=== PATIENT | male | born 1970 | race Caucasian/White ===

== ENCOUNTER 2019-01-05 16:42 | Inpatient (IN) | payer OTHER ==
[~2019-01-05] VITALS: Ht 185.4 cm; Wt 72.1 kg
--- NOTE | 2019-01-05 17:06 | Emergency Room Report ---
History of Present Illness General Chief Complaint: Abdominal Pain Source: Patient Present Illness HPI Disclaimer: Please note that this report is being documented using [employer] technology. This can lead to erroneous entry secondary to incorrect interpretation by the dictating instrument. HPI: 48-year-old male with no reported medical history presents for evaluation of abdominal pain and vomiting. He was in his usual state of health when he awoke this morning and approximately noon today while at his [employer] soccer game he began to experience periumbilical and epigastric sharp stabbing pain. He says the vomiting and pain were severe almost causing him to double over. He was seen at urgent care and prescribed a GI cocktail which improved his symptoms and he went home however had recurrence of severe periumbilical and epigastric abdominal pain again with vomiting. He denies diarrhea and has been having normal bowel movements. Denies fevers, chills, chest pain, shortness of breath although he does have some difficulty with deep inspiration secondary to abdominal pain. He denies flank pain or dysuria. No history of abdominal surgeries. Does not take any medications. PMH: Denies PSH: Denies Allergies: Denies Social Hx: Denies tobacco, alcohol or drug use Allergies: Coded Allergies: No Known Allergies (Unverified , 01/05/19) Nursing Documentation-PMH Past Medical History: No History, Except For Review of Systems All Other Systems: negative except mentioned in HPI Physical Exam Vital Signs Date Time Temp Pulse Resp B/P (MAP) Pulse Ox O2 Delivery O2 Flow Rate FiO2 01/05/19 16:46 98.2 62 20 137/79 (98) 97 Room Air General: Awake and alert, mildly uncomfortable HEENT: NC/AT. EOMI. moist mucous membranes Cardiovascular: RRR. S1 and S2 normal. No murmur appreciated Resp: Slightly tachypneic. Normal work of breathing. No cough, wheezing or crackles appreciated Abdomen: Abdomen is soft, nondistended. Tender in the epigastrium, left upper quadrant, periumbilical region and in the right lower quadrant. There is positive rebound tenderness. Rovsing sign is negative as are obturator and psoas sign. No flank tenderness. Skin: Intact. No abrasions, laceration or rash over the exposed skin MSK: Normal tone and bulk. Moving all extremities. No obvious deformity. Neuro: Awake and alert. Mentating appropriately. Back/Spine: No CVA tenderness Medical Decision Making Diagnostic Impression: Primary Impression: Pancreatitis ER Course Otherwise healthy 48-year-old male presents for evaluation of abdominal pain and vomiting. Differential includes was not limited to gastritis, gastroenteritis, pancreatitis, appendicitis, cholecystitis, nephrolithiasis, urinary tract infection, pyelonephritis, bowel obstruction, ileus, GERD. At this time is rule out appendicitis or other significant pathology. Will obtain a CT scan of the abdomen with IV contrast, broad labs, provide analgesia, antiemetics and IV fluids. Laboratory Tests Test 01/05/19 16:50 01/05/19 17:00 Urine Color Pale yellow Urine Appearance Slightly cloudy Urine pH 5 (4.5-8.0) Urine Specific [place] 1.020 (1.005-1.035) Urine Protein 1+ (NEGATIVE) H Urine Glucose (UA) Negative (NEGATIVE) Urine Ketones 4+ (NEGATIVE) H Urine Blood Negative (NEGATIVE) Urine Nitrite Negative (NEGATIVE) Urine Bilirubin Negative (NEGATIVE) Urine Urobilinogen Normal MG/DL (0.0-1.0) Urine Leukocyte Esterase Negative (NEGATIVE) Urine RBC 0 /HPF (0 - 0) Urine WBC 2-4 /HPF (0 - 0) Urine Squamous Epithelial Cells Few /LPF (NONE/OCC) Urine Bacteria Few /HPF (NONE) Urine Mucus Moderate /LPF (NONE/OCC) H White Blood Count 12.3 K/UL (4.8-10.8) H Red Blood Count 5.09 M/UL (4.70-6.10) Hemoglobin 15.7 G/DL (14.2-18.0) Hematocrit 45.5 % (42.0-52.0) Mean Corpuscular Volume 90 FL (80-99) Mean Corpuscular Hemoglobin 30.9 PG (27.0-31.0) Mean Corpuscular Hemoglobin Concent 34.6 G/DL (32.0-36.0) Red Cell Distribution Width 10.5 % (11.6-14.8) L Platelet Count 168 K/UL (150-450) Mean Platelet Volume 6.2 FL (6.5-10.1) L Neutrophils (%) (Auto) % (45.0-75.0) Lymphocytes (%) (Auto) % (20.0-45.0) Monocytes (%) (Auto) % (1.0-10.0) Eosinophils (%) (Auto) % (0.0-3.0) Basophils (%) (Auto) % (0.0-2.0) Neutrophils % (Manual) Pending Lymphocytes % (Manual) Pending Platelet Estimate Pending Platelet Morphology Pending Sodium Level 142 MMOL/L (136-145) Potassium Level 4.2 MMOL/L (3.5-5.1) Chloride Level 104 MMOL/L (98-107) Carbon Dioxide Level 26 MMOL/L (21-32) Anion Gap 12 mmol/L (5-15) Blood Urea Nitrogen 14 mg/dL (7-18) Creatinine 0.9 MG/DL (0.55-1.30) Estimate Glomerular Filtration Rate > 60 mL/min (>60) Glucose Level 109 MG/DL (74-106) H Calcium Level 8.9 MG/DL (8.5-10.1) Total Bilirubin 1.6 MG/DL (0.2-1.0) H Direct Bilirubin 0.2 MG/DL (0.0-0.3) Aspartate Amino Transferase (AST) 24 U/L (15-37) Alanine Aminotransferase (ALT) 23 U/L (12-78) Alkaline Phosphatase 61 U/L (46-116) Total Protein 7.2 G/DL (6.4-8.2) Albumin 4.1 G/DL (3.4-5.0) Globulin 3.1 g/dL Albumin/Globulin Ratio 1.3 (1.0-2.7) Lipase 69616 U/L (73-393) H CT/MRI/US Diagnostic Results CT/MRI/US Diagnostic Results : Impression Preliminary Findings Only See Final Report For Complete Findings CT ABDOMEN & PELVIS With Contrast: Impression: Pancreatic and peripancreatic edema suggesting acute pancreatitis. No pancreatic necrosis, loculated fluid collection, pseudoaneurysm, or splenic vein thrombosis. Small amount of free fluid the pelvis. Additional findings: Trace pericardial effusion. Mild periportal edema likely seen IV hydration. Liver, gallbladder, spleen, and adrenal glands are unremarkable. Kidneys, ureters and urinary bladder unremarkable. Appendix is unremarkable. Bowel is unremarkable. No acute osseous abnormality. Radiologist: Miguel Angel Huitron MD Study ready at 19:29 and initial results transmitted at 19:37 Reevaluation Time: 19:38 Last Vital Signs Date Time Temp Pulse Resp B/P (MAP) Pulse Ox O2 Delivery O2 Flow Rate FiO2 01/05/19 16:46 98.2 62 20 137/79 (98) 97 Room Air Status: unchanged Reevaluation Impression Labs are concerning for acute pancreatitis as the patient's lipase is significantly elevated at 12,000. Renal function is otherwise normal. Total bilirubin slightly elevated at 1.6 though LFTs are within normal limits. White count of 12.3 and noninfectious looking urine. CT scan does not show any evidence of pancreatic head necrosis but does show peripancreatic stranding consistent with acute pancreatitis. A right upper quadrant ultrasound has been an abdominal ultrasound is been ordered to evaluate for gallstones as the patient has no other risk factors for acute pancreatitis. Continue IV fluids, antiemetics and pain medication. The patient will be admitted for further management. 2100: No evidence of retained gallstones on ultrasound. GI is aware of the patient and he will be evaluated tomorrow morning. Pain is better controlled and continues to receive IV fluids and antiemetics. Will be transferred to the floor for further management per admitting service Disposition: ADMITTED INPATIENT Condition: Serious Franklyn Parry MD Jan 05, 2019 17:06
[2019-01-05] MEDS ORDERED: Omnipaque-300 100ml vial INJ PRN (17:15)
[2019-01-05 17:35] VITALS: BP 144/76
[2019-01-05 17:36] LABS: APPEARANCE,URINE SLIGHTLY CLOUDY; BILIRUBIN, URINE NEGATIVE (NEGATIVE); COLOR,URINE PALE YELLOW; GLUCOSE, URINE (UA) NEGATIVE (NEGATIVE); KETONES,URINE 4+ (NEGATIVE); LEUKOCYTE ESTERASE ,URINE NEGATIVE (NEGATIVE); NITRITE,URINE NEGATIVE (NEGATIVE); PH,URINE 5 (4.5-8.0); PROTEIN,URINE 1+ (NEGATIVE); UROBILINOGEN,URINE NORMAL MG/DL (0.0-1.0)
[2019-01-05 17:38] LABS: HEMATOCRIT 45.5 % (42.0-52.0); HEMOGLOBIN 15.7 G/DL (14.2-18.0); MEAN CORPUSCULAR VOLUME 90 FL (80-99); PLATELET COUNT 168 K/UL (150-450); RED BLOOD COUNT 5.09 M/UL (4.70-6.10); RED CELL DISTRIBUTION WIDTH 10.5 % (11.6-14.8); WHITE BLOOD COUNT 12.3 K/UL (4.8-10.8)
[2019-01-05 17:53] LABS: ANION GAP 12 mmol/L (5-15); BLOOD UREA NITROGEN 14 mg/dL (7-18); CALCIUM 8.9 MG/DL (8.5-10.1); CARBON DIOXIDE 26 MMOL/L (21-32); CHLORIDE 104 MMOL/L (98-107); CREATININE 0.9 MG/DL (0.55-1.30); POTASSIUM 4.2 MMOL/L (3.5-5.1); SODIUM 142 MMOL/L (136-145)
[2019-01-05 18:04] LABS: ALANINE AMINOTRANSFERASE 23 U/L (12-78); ALBUMIN 4.1 G/DL (3.4-5.0); ALBUMIN/GLOBULIN RATIO 1.3 (1.0-2.7); ALKALINE PHOSPHATASE 61 U/L (46-116); ASPARTATE AMINO TRANSFERASE 24 U/L (15-37); BILIRUBIN,TOTAL 1.6 MG/DL (0.2-1.0)
[2019-01-05 18:08] LABS: BILIRUBIN,DIRECT 0.2 MG/DL (0.0-0.3)
--- NOTE | 2019-01-05 19:38 | Diagnostic Imaging Report ---
Clinical Indication: Abdominal pain, vomiting Technique: No oral contrast utilized, per emergency room physician request IV administration nonionic contrast. Venous phase spiral acquisition obtained through the abdomen and pelvis. Multiplanar reconstructions were generated. Total dose length product 759 mGycm. CTDIvol(s) 13 mGy. Dose reduction achieved using automated exposure control Comparison: none Findings: There is mild enlargement of the pancreatic tail. Fluid is seen tracking along anterior Gerota's fascia into the left paracolic gutter, as well as within the central mesenteric root. Phlegmon changes are also seen in the fat surrounding the pancreatic tail. A small amount of fluid is also seen tracking cephalad under the left hemidiaphragm. The pancreas enhances normally. No discrete or rim-enhancing fluid collection demonstrated. The appendix is normal. There are colonic diverticula. No evidence of acute diverticulitis. No small bowel distention. No free intraperitoneal gas. The liver demonstrates mild periportal edema, is otherwise unremarkable. Gallbladder, bile ducts, spleen, adrenals, kidneys are all unremarkable. No retroperitoneal or mesenteric mass or adenopathy. No pelvic mass or adenopathy. No renal or ureteral calculi, hydronephrosis, or hydroureter. The included lung bases demonstrate posterior dependent atelectatic changes. There are degenerative changes of the lumbosacral junction Impression: Evidence of nonnecrotizing acute pancreatitis, with surrounding phlegmon and fluid. No evidence of pseudocyst or abscess Colonic diverticulosis. No evidence of diverticulitis Mild periportal edema Incidental findings as noted, including degenerative changes of the lumbosacral junction, posterior dependent pulmonary atelectatic changes This agrees with the preliminary interpretation provided overnight by [facility] teleradiology service. The CT scanner at [facility] is accredited by the [employer] and the scans are performed using protocols designed to limit radiation exposure to as low as reasonably achievable to attain images of sufficient resolution adequate for diagnostic evaluation.
[2019-01-05] MEDS ORDERED: Morphine Sulfate 4mg/ml Inj (IV USE ONLY) IVP ONE (20:00)
--- NOTE | 2019-01-05 21:51 | Diagnostic Imaging Report ---
Indication: Epigastric pain, abnormal lipase Technique: [place]-scale and duplex images of the upper abdomen were obtained Comparison: Findings: Gallbladder is unremarkable, without stones, wall thickening, nor pericholecystic fluid. Sonographic Francisco's sign is negative. Common bile duct measures 6 mm in diameter. No intrahepatic biliary ductal dilatation. Liver demonstrates normal echogenicity, no focal abnormality. Portal vein and hepatic veins are patent. There is suggestion of mild pancreatic enlargement in the region of the body and tail Spleen is unremarkable. However, a small amount of fluid is seen adjacent to the spleen Left kidney measures 11.3 cm in length. Right kidney measures 10.1 cm length. Both kidneys demonstrate normal echogenicity. There is no hydronephrosis. No focal abnormality . Non-aneurysmal abdominal aorta . Impression: Negative for gallstones or dilated bile ducts Somewhat enlarged pancreatic body and tail, corresponding with findings demonstrated on earlier CT scan and likely reflecting acute pancreatitis Fluid around the spleen, corresponding to peripancreatic fluid reported on recent CT scan This essentially agrees with the preliminary interpretation provided overnight by [facility] teleradiology service.
[2019-01-05 22:26] VITALS: BP 134/72
[2019-01-06] VITALS: BP 128/74
[2019-01-06] MEDS: D5NS 1,000 ML IV SCH ×4 (00:07→23:18)
[2019-01-06 04:00] VITALS: BP 131/76
[2019-01-06] MEDS: Morphine Sulfate 2mg/ml Inj(IV/IM USE ONLY) IVP PRN ×3 (07:57→20:41)
[2019-01-06 08:00] VITALS: BP 136/76
[2019-01-06 10:30] LABS: BASOPHILS % (AUTO) 0.7 % (0.0-2.0); EOSINOPHILS % (AUTO) 0.1 % (0.0-3.0); HEMATOCRIT 41.3 % (42.0-52.0); HEMOGLOBIN 14.6 G/DL (14.2-18.0); LYMPHOCYTES % (AUTO) 17.8 % (20.0-45.0); MEAN CORPUSCULAR VOLUME 89 FL (80-99); MONOCYTES % (AUTO) 6.9 % (1.0-10.0); NEUTROPHILS % (AUTO) 74.4 % (45.0-75.0); PLATELET COUNT 147 K/UL (150-450); RED BLOOD COUNT 4.67 M/UL (4.70-6.10); RED CELL DISTRIBUTION WIDTH 10.6 % (11.6-14.8); WHITE BLOOD COUNT 9.4 K/UL (4.8-10.8)
[2019-01-06 10:41] LABS: ALANINE AMINOTRANSFERASE 15 U/L (12-78); ALBUMIN 3.1 G/DL (3.4-5.0); ALKALINE PHOSPHATASE 46 U/L (46-116); ANION GAP 5 mmol/L (5-15); ASPARTATE AMINO TRANSFERASE 18 U/L (15-37); BILIRUBIN,DIRECT 0.3 MG/DL (0.0-0.3); BILIRUBIN,TOTAL 1.8 MG/DL (0.2-1.0); BLOOD UREA NITROGEN 10 mg/dL (7-18); CALCIUM 7.7 MG/DL (8.5-10.1); CARBON DIOXIDE 31 MMOL/L (21-32); CHLORIDE 106 MMOL/L (98-107); SODIUM 142 MMOL/L (136-145)
--- NOTE | 2019-01-06 11:00 | General Progress Note ---
Assessment/Plan Assessment/Plan: Assessment Acute pancreatitis, ? Etiology - no EtOH - no stones on imaging - ? panc divisum , ? CBD stone, ? panc lesion Recommendations - NPO today, will consider clears tomorrow - check MRCP tomorrow Thank you Abigail Delacruz MD Subjective Allergies: Coded Allergies: No Known Allergies (Unverified , 01/05/19) Objective Last 24 Hour Vital Signs Date Time Temp Pulse Resp B/P (MAP) Pulse Ox O2 Delivery O2 Flow Rate FiO2 01/06/19 09:00 Room Air 01/06/19 08:00 97.5 68 20 136/76 (96) 98 01/06/19 04:00 99.0 80 18 131/76 (94) 98 01/06/19 00:00 99.2 78 18 128/74 (92) 99 01/05/19 22:26 Room Air 01/05/19 22:26 99.0 74 18 134/72 (92) 98 01/05/19 21:05 98.6 62 18 138/75 98 Room Air 01/05/19 17:35 58 20 Room Air 01/05/19 17:35 98.2 58 17 144/76 98 Room Air 01/05/19 16:46 98.2 62 20 137/79 (98) 97 Room Air Intake and Output 01/05/19 01/06/19 19:00 07:00 Intake Total 1000 ml 750 ml Balance 1000 ml 750 ml Intake IV Total 1000 ml 750 ml # Voids 2 Laboratory Tests 01/05/19 16:50: Urine Color Pale yellow, Urine Appearance Slightly cloudy, Urine pH 5, Urine Specific [place] 1.020, Urine Protein 1+H, Urine Glucose (UA) Negative, Urine Ketones 4+H, Urine Blood Negative, Urine Nitrite Negative, Urine Bilirubin Negative, Urine Urobilinogen Normal, Urine Leukocyte Esterase Negative, Urine RBC 0, Urine WBC 2-4, Urine Squamous Epithelial Cells Few, Urine Bacteria Few, Urine Mucus ModerateH 01/05/19 17:00: White Blood Count 12.3H, Red Blood Count 5.09, Hemoglobin 15.7, Hematocrit 45.5 , Mean Corpuscular Volume 90, Mean Corpuscular Hemoglobin 30.9, Mean Corpuscular Hemoglobin Concent 34.6, Red Cell Distribution Width 10.5L, Platelet Count 168, Mean Platelet Volume 6.2L, Neutrophils (%) (Auto) , Lymphocytes (%) (Auto) , Monocytes (%) (Auto) , Eosinophils (%) (Auto) , Basophils (%) (Auto) , Differential Total Cells Counted 100, Neutrophils % ( Manual) 85H, Lymphocytes % (Manual) 11L, Monocytes % (Manual) 4, Eosinophils % ( Manual) 0, Basophils % (Manual) 0, Band Neutrophils 0, Platelet Estimate Adequate, Platelet Morphology Normal, Red Blood Cell Morphology Normal, Sodium Level 142, Potassium Level 4.2, Chloride Level 104, Carbon Dioxide Level 26, Anion Gap 12, Blood Urea Nitrogen 14, Creatinine 0.9, Estimat Glomerular Filtration Rate > 60, Glucose Level 109H, Calcium Level 8.9, Total Bilirubin 1.6H, Direct Bilirubin 0.2, Aspartate Amino Transf (AST/SGOT) 24, Alanine Aminotransferase (ALT/SGPT) 23, Alkaline Phosphatase 61, Total Protein 7.2, Albumin 4.1, Globulin 3.1, Albumin/Globulin Ratio 1.3, Lipase 42030P 01/06/19 09:50: White Blood Count 9.4, Red Blood Count 4.67L, Hemoglobin 14.6, Hematocrit 41.3L , Mean Corpuscular Volume 89, Mean Corpuscular Hemoglobin 31.4H, Mean Corpuscular Hemoglobin Concent 35.4, Red Cell Distribution Width 10.6L, Platelet Count 147L, Mean Platelet Volume 6.8, Neutrophils (%) (Auto) 74.4, Lymphocytes (%) (Auto) 17.8L, Monocytes (%) (Auto) 6.9, Eosinophils (%) (Auto) 0.1, Basophils (%) (Auto) 0.7, Sodium Level 142, Potassium Level 4.0, Chloride Level 106, Carbon Dioxide Level 31, Anion Gap 5, Blood Urea Nitrogen 10, Creatinine 1.0, Estimat Glomerular Filtration Rate > 60, Glucose Level 127H, Calcium Level 7.7L, Total Bilirubin 1.8H, Direct Bilirubin 0.3, Aspartate Amino Transf (AST/SGOT) 18, Alanine Aminotransferase (ALT/SGPT) 15, Alkaline Phosphatase 46, Total Protein 6.4, Albumin 3.1L Height (Feet): 6 Height (Inches): 1.00 Weight (Pounds): 150 Abigail Delacruz MD Jan 06, 2019 11:00
[2019-01-06] MEDS ORDERED: Gadavist 7.5mMol/7.5ml vial IV SCH (11:15)
[2019-01-06 12:00] VITALS: BP 141/77
--- NOTE | 2019-01-06 12:43 | History & Physical ---
History and Physical History & Physicial dict acute pancreatitis without gallstones IVF pain mgmt NPO Bryson Ramos MD Jan 06, 2019 12:43
--- NOTE | 2019-01-06 15:30 | History and Physical Report ---
DATE OF ADMISSION: 01/05/2019 HISTORY OF PRESENT ILLNESS: The patient is a very pleasant 48-year-old man who was at his child's soccer game when he began having abdominal pain. The pain became more severe and he went to urgent care. He was given a GI cocktail, which alleviated the pain somewhat, and he went home. The pain became much more severe and he came to the emergency department. He was evaluated with labs and imaging and found to have acute pancreatitis and admission was arranged. He does not drink alcohol and has no history of abdominal surgery or gallstones. He is otherwise in good health. PAST MEDICAL HISTORY: Migraine, but no other history of health problems. He specifically denies history of hypertension, diabetes, hyperlipidemia, cardiac or pulmonary disease. He has no history of abdominal disorders such as ulcer, gastritis, or pancreatitis. ALLERGIES: None. MEDICATION: Occasional Imitrex. SOCIAL HISTORY: He is and has children. He does not use alcohol, tobacco, or drugs. REVIEW OF SYSTEMS: Otherwise unremarkable except for some shortness of breath due to pain in the abdomen. PHYSICAL EXAMINATION: GENERAL: The patient is well developed and well nourished. He appears comfortable after receiving some narcotics. VITAL SIGNS: Stable. There is no fever. HEENT: The head is normocephalic. NECK: No jugular venous distention. CHEST: Clear. CARDIAC: Rhythm is regular. ABDOMEN: Tender in the mid and upper abdomen without mass or ascites. Liver and spleen are not felt. EXTREMITIES: No clubbing, cyanosis, or edema. LABORATORY AND DIAGNOSTIC DATA: Laboratory studies and imaging are reviewed. IMPRESSION: 1. Acute pancreatitis, non-necrotizing without gallstones. 2. History of migraine. PLAN: The patient will be kept NPO and given pain medication and fluids. GI consultation has been obtained and recommendations will be followed. I have spoken to his primary physician, Dr. Gómez Grove today. I advised the patient he might be transferred to [facility] if a bed is available. Bryson Ramos M.D. DR: MIRANDA JOB#: [id number] CC: Bryson Ramos M.D.; Fax#: [phone] JUAN GRAY M.D. ; FAX#: [phone] [facility]
[2019-01-06 20:00] VITALS: BP 137/81
[2019-01-06] MEDS: Zolpidem 5mg tab ORAL PRN (23:13)
[2019-01-07] VITALS: BP 139/78
--- NOTE | 2019-01-07 03:30 | Consultation ---
DATE OF CONSULTATION: 01/06/2019 GASTROENTEROLOGY CONSULTATION CONSULTING PHYSICIAN: Abigail Delacruz M.D. REFERRING PHYSICIAN: Bryson Ramos M.D. CHIEF COMPLAINT: I was asked to see this patient by Dr. Bryson Ramos for evaluation of pancreatitis. HISTORY OF PRESENT ILLNESS: The patient is a pleasant 48-year-old white man who was admitted with one-day history of acute abdominal pain in the epigastric region. He had one bout of nausea, vomiting abdominal pain. He does not drink alcohol. He has had no history of gallstones. He is on no new medications or drugs spider bites . PAST MEDICAL HISTORY: History of migraines, treated with Imitrex and history of perhaps a diagnosis of pancreatitis . SOCIAL HISTORY: The patient is . He has three children. HOME MEDICATIONS: Imitrex. REVIEW OF SYSTEMS: Otherwise negative. PHYSICAL EXAMINATION: GENERAL: A white man seen in his room. HEENT: Normocephalic and atraumatic. Sclerae are anicteric. Oropharynx is clear. NECK: Supple. CHEST: Clear to auscultation. CARDIOVASCULAR: Revealed regular rate. ABDOMEN: Soft with epigastric tenderness. No masses. EXTREMITIES: Revealed no edema. LABORATORY DATA: Noted. IMAGING STUDIES: Noted. ASSESSMENT: This patient presents with acute pancreatitis for the first time. He does not drink alcohol. He does not have any stones in the imaging studies here. It is highly possible that he had one stone and the stone passed but causing the pancreatitis. Other pathology to be evaluated. This includes possible pancreatic lesion which was seen on the MRI CT scan. In addition, seen on MRCP. Those were ordered for tomorrow. In addition, I ordered a lipid panel to rule out hypertriglyceridemia as the cause of the pancreatitis. The patient will be kept n.p.o. tomorrow and antibiotics can be started tomorrow after the MRI scanning . RECOMMENDATIONS: Per above discussion and per orders written in the chart. Thank you for asking me to participate in the care of this patient. Payman Khorrami, M.D. DR: LUC JOB#: [id number] CC:
[2019-01-07 04:00] VITALS: BP 122/75
[2019-01-07] MEDS: D5NS 1,000 ML IV SCH ×4 (06:04→21:37)
[2019-01-07 07:16] LABS: BASOPHILS % (AUTO) 0.4 % (0.0-2.0); EOSINOPHILS % (AUTO) 0.1 % (0.0-3.0); HEMATOCRIT 39.9 % (42.0-52.0); HEMOGLOBIN 14.1 G/DL (14.2-18.0); LYMPHOCYTES % (AUTO) 10.7 % (20.0-45.0); MEAN CORPUSCULAR VOLUME 88 FL (80-99); MONOCYTES % (AUTO) 8.2 % (1.0-10.0); NEUTROPHILS % (AUTO) 80.6 % (45.0-75.0); PLATELET COUNT 131 K/UL (150-450); RED BLOOD COUNT 4.52 M/UL (4.70-6.10); RED CELL DISTRIBUTION WIDTH 10.2 % (11.6-14.8); WHITE BLOOD COUNT 12.1 K/UL (4.8-10.8)
[2019-01-07 07:43] LABS: ALANINE AMINOTRANSFERASE 24 U/L (12-78); ALBUMIN/GLOBULIN RATIO 0.9 (1.0-2.7); ALKALINE PHOSPHATASE 51 U/L (46-116); ANION GAP 8 mmol/L (5-15); ASPARTATE AMINO TRANSFERASE 24 U/L (15-37); BILIRUBIN,TOTAL 1.9 MG/DL (0.2-1.0); BLOOD UREA NITROGEN 7 mg/dL (7-18); CALCIUM 7.6 MG/DL (8.5-10.1); CARBON DIOXIDE 27 MMOL/L (21-32); CHLORIDE 106 MMOL/L (98-107); CREATININE 0.9 MG/DL (0.55-1.30); POTASSIUM 3.8 MMOL/L (3.5-5.1); SODIUM 140 MMOL/L (136-145)
[2019-01-07 07:46] LABS: BILIRUBIN,DIRECT 0.3 MG/DL (0.0-0.3)
[2019-01-07 08:00] VITALS: BP 153/72
--- NOTE | 2019-01-07 11:11 | Diagnostic Imaging Report ---
Indication: Abdominal pain, abnormal pancreatic enzymes, acute pancreatitis Technique: Axial single shot fast spin echo breath hold, coronal single shot fast spin-echo breath hold, axial T2 FRFSE fat-saturated, 2-D thick slab MRCP, axial 2-D FIESTA fat-saturated, axial 3-D dual echo breath-hold, precontrast axial and postcontrast axial and coronal water weighted axial LAVA FLEX images of the abdomen Comparison: Reference made to abdomen pelvis CT dated 01/05/2019, abdominal ultrasound dated 01/05/2019 Findings: The gallbladder is nondistended and does not demonstrate any filling defects or wall thickening. The common bile duct is slightly ectatic, measuring up to 7 mm in diameter the pancreas enhances normally no filling defects are demonstrated. The common bile duct tapers at the level of the ampulla. However, the narrowed distal segment is slightly longer than would be expected and a 6 mm low signal area is demonstrated in the ampullary region on the pre and postcontrast LAVA FLEX images. No signal abnormality is seen in this area on any of the other sequences.. The intrahepatic bile ducts are nondilated. No filling defects are demonstrated. The pancreatic ducts are normal in caliber and there are no findings to suggest pancreas divisum As demonstrated on prior CT scan, there is prominence of the distal pancreatic body and the pancreatic tail. Fluid and phlegmon are seen in the left upper quadrant, as in the left retroperitoneum, surrounding the left kidney, and tracking along Gerota's fascia on the left, surrounding the stomach and within the transverse mesial colon. This appears to be more extensive than that seen on the prior CT scan. Free fluid is seen surrounding the liver, in the right paracolic gutter, and in the pelvis. The extent of the free fluid also appears slightly increased from the prior CT. There are trace bilateral pleural diffusion which are not evident on the prior CT scan. There is a small amount of pericardial fluid which is likewise not evident on the prior CT. No discrete organized peripancreatic fluid collections are demonstrated. The liver, spleen, kidneys are unremarkable. No pelvic mass or adenopathy. Impression: Negative for evidence of gallstones Common bile duct appears slightly ectatic, and slightly more so than on the previous day's CT scan. There are no filling defects to suggest choledocholithiasis. There is tapering at the level of the downstream common bile duct which is probably physiologic. However, the narrowed distal segment is slightly longer than expected, and there some low signal in this area on the pre and postcontrast images, so the possibility of a small mass in the pancreatic head or ampulla should be considered. Consider endoscopic ultrasound, possibly with ERCP when patient condition permits, for further evaluation. Again demonstrated is evidence of acute distal pancreatitis. Although difficult to compare modalities, the extent of phlegmon appears to likely to have increased since the previous day's exam. There is also increasing free intraperitoneal fluid and new trace pleural effusions and pericardial effusion Findings discussed by phone with Dr. Delacruz at the time of interpretation
[2019-01-07 12:00] VITALS: BP 144/67
--- NOTE | 2019-01-07 13:40 | General Progress Note ---
Assessment/Plan Assessment/Plan: 1. Acute pancreatitis, non-necrotizing without gallstones. 2. History of migraine. lipase down markedly MRI noted EUS elective later clears disc w RN, GI Subjective Gastrointestinal/Abdominal: Reports: abdominal pain Allergies: Coded Allergies: No Known Allergies (Unverified , 01/05/19) Objective Last 24 Hour Vital Signs Date Time Temp Pulse Resp B/P (MAP) Pulse Ox O2 Delivery O2 Flow Rate FiO2 01/07/19 12:00 99.3 72 14 144/67 (92) 96 01/07/19 09:00 Room Air 01/07/19 08:00 99.1 73 22 153/72 (99) 98 01/07/19 04:00 98.2 69 17 122/75 (91) 95 01/07/19 00:00 98.1 76 20 139/78 (98) 97 01/06/19 21:00 Room Air 01/06/19 20:00 99.5 86 18 137/81 (99) 97 Intake and Output 01/06/19 01/07/19 19:00 07:00 Intake Total 150 ml 850 ml Balance 150 ml 850 ml Intake IV Total 150 ml 850 ml # Voids 3 Laboratory Tests 01/07/19 05:10: White Blood Count 12.1H, Red Blood Count 4.52L, Hemoglobin 14.1L, Hematocrit 39.9L, Mean Corpuscular Volume 88, Mean Corpuscular Hemoglobin 31.3H, Mean Corpuscular Hemoglobin Concent 35.4, Red Cell Distribution Width 10.2L, Platelet Count 131L, Mean Platelet Volume 6.0L, Neutrophils (%) (Auto) 80.6H, Lymphocytes (%) (Auto) 10.7L, Monocytes (%) (Auto) 8.2, Eosinophils (%) (Auto) 0.1, Basophils (%) (Auto) 0.4, Sodium Level 140, Potassium Level 3.8, Chloride Level 106, Carbon Dioxide Level 27, Anion Gap 8, Blood Urea Nitrogen 7, Creatinine 0.9, Estimat Glomerular Filtration Rate > 60, Glucose Level 136H, Calcium Level 7.6L, Total Bilirubin 1.9H, Direct Bilirubin 0.3, Aspartate Amino Transf (AST/SGOT) 24, Alanine Aminotransferase (ALT/SGPT) 24, Alkaline Phosphatase 51, Total Protein 6.4, Albumin 3.0L, Globulin 3.4, Albumin/Globulin Ratio 0.9L, Lipase 851H Height (Feet): 6 Height (Inches): 1.00 Weight (Pounds): 150 General Appearance: no apparent distress Cardiovascular: normal rate Respiratory/Chest: lungs clear Abdomen: non tender Bryson Ramos MD Jan 07, 2019 13:40
[2019-01-07 16:00] VITALS: BP 137/71
[2019-01-07 20:00] VITALS: BP 146/72
--- NOTE | 2019-01-07 23:44 | General Progress Note ---
Assessment/Plan Assessment/Plan: Assessment Acute pancreatitis, ? Etiology - no EtOH - no stones on imaging - no panc divisum on MRI - ill defined CBD finding on MRI of doubtful significance Recommendations - Begin clears - follow exam - IVF - outpatient EUS/EGD - check lipid panel Subjective Allergies: Coded Allergies: No Known Allergies (Unverified , 01/05/19) Subjective feels better less pain had MRI - results noted low grade temp noted, now resoled Objective Last 24 Hour Vital Signs Date Time Temp Pulse Resp B/P (MAP) Pulse Ox O2 Delivery O2 Flow Rate FiO2 01/07/19 21:00 Room Air 01/07/19 20:00 99.4 83 16 146/72 (96) 95 01/07/19 17:51 99.0 01/07/19 16:00 100.9 82 17 137/71 (93) 98 01/07/19 12:00 99.3 72 14 144/67 (92) 96 01/07/19 09:00 Room Air 01/07/19 08:00 99.1 73 22 153/72 (99) 98 01/07/19 04:00 98.2 69 17 122/75 (91) 95 01/07/19 00:00 98.1 76 20 139/78 (98) 97 Intake and Output 01/06/19 01/07/19 18:59 06:59 Intake Total 1000 ml Balance 1000 ml IV Total 1000 ml # Voids 3 Laboratory Tests 01/07/19 05:10: White Blood Count 12.1H, Red Blood Count 4.52L, Hemoglobin 14.1L, Hematocrit 39.9L, Mean Corpuscular Volume 88, Mean Corpuscular Hemoglobin 31.3H, Mean Corpuscular Hemoglobin Concent 35.4, Red Cell Distribution Width 10.2L, Platelet Count 131L, Mean Platelet Volume 6.0L, Neutrophils (%) (Auto) 80.6H, Lymphocytes (%) (Auto) 10.7L, Monocytes (%) (Auto) 8.2, Eosinophils (%) (Auto) 0.1, Basophils (%) (Auto) 0.4, Sodium Level 140, Potassium Level 3.8, Chloride Level 106, Carbon Dioxide Level 27, Anion Gap 8, Blood Urea Nitrogen 7, Creatinine 0.9, Estimat Glomerular Filtration Rate > 60, Glucose Level 136H, Calcium Level 7.6L, Total Bilirubin 1.9H, Direct Bilirubin 0.3, Aspartate Amino Transf (AST/SGOT) 24, Alanine Aminotransferase (ALT/SGPT) 24, Alkaline Phosphatase 51, Total Protein 6.4, Albumin 3.0L, Globulin 3.4, Albumin/Globulin Ratio 0.9L, Lipase 851H Height (Feet): 6 Height (Inches): 1.00 Weight (Pounds): 150 Objective WDWN NCAT supple CTA RRR abd soft, min epigastric TTP no edema non focal Abigail Delacruz MD Jan 07, 2019 23:44
[2019-01-08] VITALS (7 sets, daily range): BP systolic 118–144; BP diastolic 70–80
[2019-01-08] MEDS: Zolpidem 5mg tab ORAL PRN (01:03)
[2019-01-08] MEDS: D5NS 1,000 ML IV SCH ×3 (04:08→17:56)
[2019-01-08 08:12] LABS: BASOPHILS % (AUTO) 0.4 % (0.0-2.0); EOSINOPHILS % (AUTO) 0.5 % (0.0-3.0); HEMATOCRIT 36.9 % (42.0-52.0); LYMPHOCYTES % (AUTO) 13.9 % (20.0-45.0); MEAN CORPUSCULAR VOLUME 90 FL (80-99); MONOCYTES % (AUTO) 5.8 % (1.0-10.0); NEUTROPHILS % (AUTO) 79.4 % (45.0-75.0); PLATELET COUNT 138 K/UL (150-450); RED BLOOD COUNT 4.11 M/UL (4.70-6.10); WHITE BLOOD COUNT 10.6 K/UL (4.8-10.8)
[2019-01-08 08:32] LABS: ALBUMIN 2.7 G/DL (3.4-5.0); ALBUMIN/GLOBULIN RATIO 0.8 (1.0-2.7); ALKALINE PHOSPHATASE 60 U/L (46-116); ANION GAP 3 mmol/L (5-15); ASPARTATE AMINO TRANSFERASE 38 U/L (15-37); BILIRUBIN,DIRECT 0.3 MG/DL (0.0-0.3); BILIRUBIN,TOTAL 1.7 MG/DL (0.2-1.0); BLOOD UREA NITROGEN 3 mg/dL (7-18); CALCIUM 7.4 MG/DL (8.5-10.1); CARBON DIOXIDE 30 MMOL/L (21-32); CHLORIDE 106 MMOL/L (98-107); CREATININE 0.9 MG/DL (0.55-1.30); HDL CHOLESTEROL 40 MG/DL (40-60); POTASSIUM 3.2 MMOL/L (3.5-5.1); SODIUM 139 MMOL/L (136-145); TRIGLYCERIDES 53 MG/DL (30-150)
[2019-01-08 08:42] LABS: ALANINE AMINOTRANSFERASE 50 U/L (12-78)
[2019-01-08 09:57] LABS: CHOLESTEROL 106 MG/DL (< 200)
--- NOTE | 2019-01-08 14:34 | General Progress Note ---
Assessment/Plan Assessment/Plan: 1. Acute pancreatitis, non-necrotizing without gallstones, resolving. 2. History of migraine. lipase down full liquids tomorrow low fat diet dc home tomorrow if tolerates diet disc w RN Subjective Constitutional: Reports: no symptoms Gastrointestinal/Abdominal: Reports: abdominal pain - less Allergies: Coded Allergies: No Known Allergies (Unverified , 01/05/19) Objective Last 24 Hour Vital Signs Date Time Temp Pulse Resp B/P (MAP) Pulse Ox O2 Delivery O2 Flow Rate FiO2 01/08/19 12:00 98.1 72 18 136/70 (92) 99 01/08/19 09:00 Room Air 01/08/19 08:14 Room Air 01/08/19 08:00 97.0 89 18 133/76 (95) 96 01/08/19 04:00 98.6 86 18 144/80 (101) 97 01/08/19 00:00 98.9 74 18 136/75 (95) 95 01/07/19 21:00 Room Air 01/07/19 20:00 99.4 83 16 146/72 (96) 95 01/07/19 17:51 99.0 01/07/19 16:00 100.9 82 17 137/71 (93) 98 Intake and Output 01/07/19 01/08/19 19:00 07:00 Intake Total 2009 ml 1860 ml Balance 2009 ml 1860 ml Intake Oral 960 ml 360 ml IV Total 1050 ml 1500 ml # Voids 4 2 Laboratory Tests 01/08/19 07:45: White Blood Count 10.6, Red Blood Count 4.11L, Hemoglobin 13.0L, Hematocrit 36.9L, Mean Corpuscular Volume 90, Mean Corpuscular Hemoglobin 31.7H, Mean Corpuscular Hemoglobin Concent 35.3, Red Cell Distribution Width 11.0L, Platelet Count 138L, Mean Platelet Volume 7.2, Neutrophils (%) (Auto) 79.4H, Lymphocytes (%) (Auto) 13.9L, Monocytes (%) (Auto) 5.8, Eosinophils (%) (Auto) 0.5, Basophils (%) (Auto) 0.4, Sodium Level 139, Potassium Level 3.2L, Chloride Level 106, Carbon Dioxide Level 30, Anion Gap 3L, Blood Urea Nitrogen 3L, Creatinine 0.9, Estimat Glomerular Filtration Rate > 60, Glucose Level 131H, Calcium Level 7.4L, Total Bilirubin 1.7H, Direct Bilirubin 0.3, Aspartate Amino Transf (AST/SGOT) 38H, Alanine Aminotransferase (ALT/SGPT) 50, Alkaline Phosphatase 60, Total Protein 6.1L, Albumin 2.7L, Globulin 3.4, Albumin/ Globulin Ratio 0.8L, Triglycerides Level 53, Cholesterol Level 106, LDL Cholesterol 56, HDL Cholesterol 40, Cholesterol/HDL Ratio 2.7L, Lipase 279 Height (Feet): 6 Height (Inches): 1.00 Weight (Pounds): 159 General Appearance: no apparent distress Cardiovascular: normal rate Abdomen: non tender, soft, no organomegaly Bryson Ramos MD Jan 08, 2019 14:34
--- NOTE | 2019-01-08 22:46 | General Progress Note ---
Assessment/Plan Assessment/Plan: Assessment Acute pancreatitis, ? Etiology - no EtOH - no stones on imaging - no panc divisum on MRI - ill defined CBD finding on MRI of doubtful significance Recommendations - advance to low fat diet - follow exam - IVF - outpatient EUS/EGD - check lipid panel - unremarkable - d/c planning for TH if stable Subjective Allergies: Coded Allergies: No Known Allergies (Unverified , 01/05/19) Subjective feels better less pain lipase normal d/w patient re need for outpatient EUS / ERCP Objective Last 24 Hour Vital Signs Date Time Temp Pulse Resp B/P (MAP) Pulse Ox O2 Delivery O2 Flow Rate FiO2 01/08/19 20:04 Room Air 01/08/19 20:00 99.7 77 18 144/78 (100) 99 01/08/19 16:00 97.0 68 18 118/74 (89) 97 01/08/19 12:00 98.1 72 18 136/70 (92) 99 01/08/19 09:00 Room Air 01/08/19 08:14 Room Air 01/08/19 08:00 97.0 89 18 133/76 (95) 96 01/08/19 04:00 98.6 86 18 144/80 (101) 97 01/08/19 00:00 98.9 74 18 136/75 (95) 95 Intake and Output 01/07/19 01/08/19 18:59 06:59 Intake Total 1860 ml 2009 ml Balance 1860 ml 2009 ml Intake Oral 960 ml 360 ml IV Total 900 ml 1650 ml # Voids 4 2 Laboratory Tests 01/08/19 07:45: White Blood Count 10.6, Red Blood Count 4.11L, Hemoglobin 13.0L, Hematocrit 36.9L, Mean Corpuscular Volume 90, Mean Corpuscular Hemoglobin 31.7H, Mean Corpuscular Hemoglobin Concent 35.3, Red Cell Distribution Width 11.0L, Platelet Count 138L, Mean Platelet Volume 7.2, Neutrophils (%) (Auto) 79.4H, Lymphocytes (%) (Auto) 13.9L, Monocytes (%) (Auto) 5.8, Eosinophils (%) (Auto) 0.5, Basophils (%) (Auto) 0.4, Sodium Level 139, Potassium Level 3.2L, Chloride Level 106, Carbon Dioxide Level 30, Anion Gap 3L, Blood Urea Nitrogen 3L, Creatinine 0.9, Estimat Glomerular Filtration Rate > 60, Glucose Level 131H, Calcium Level 7.4L, Total Bilirubin 1.7H, Direct Bilirubin 0.3, Aspartate Amino Transf (AST/SGOT) 38H, Alanine Aminotransferase (ALT/SGPT) 50, Alkaline Phosphatase 60, Total Protein 6.1L, Albumin 2.7L, Globulin 3.4, Albumin/ Globulin Ratio 0.8L, Triglycerides Level 53, Cholesterol Level 106, LDL Cholesterol 56, HDL Cholesterol 40, Cholesterol/HDL Ratio 2.7L, Lipase 279 Height (Feet): 6 Height (Inches): 1.00 Weight (Pounds): 159 Objective WDWN NCAT supple CTA RRR abd soft, min epigastric TTP no edema non focal Abigail Delacruz MD Jan 08, 2019 22:46
[2019-01-09] MEDS: D5NS 1,000 ML IV SCH ×3 (01:20→13:55)
[2019-01-09] MEDS: Zolpidem 5mg tab ORAL PRN (01:26)
[2019-01-09 03:56] VITALS: BP 139/71
[2019-01-09 06:31] LABS: BASOPHILS % (AUTO) 0.7 % (0.0-2.0); EOSINOPHILS % (AUTO) 1.4 % (0.0-3.0); HEMATOCRIT 34.9 % (42.0-52.0); HEMOGLOBIN 12.3 G/DL (14.2-18.0); LYMPHOCYTES % (AUTO) 19.4 % (20.0-45.0); MEAN CORPUSCULAR VOLUME 90 FL (80-99); MONOCYTES % (AUTO) 7.7 % (1.0-10.0); NEUTROPHILS % (AUTO) 70.8 % (45.0-75.0); PLATELET COUNT 120 K/UL (150-450); RED BLOOD COUNT 3.89 M/UL (4.70-6.10); RED CELL DISTRIBUTION WIDTH 11.1 % (11.6-14.8); WHITE BLOOD COUNT 8.2 K/UL (4.8-10.8)
[2019-01-09 07:12] LABS: ALANINE AMINOTRANSFERASE 60 U/L (12-78); ALBUMIN 2.5 G/DL (3.4-5.0); ALBUMIN/GLOBULIN RATIO 0.8 (1.0-2.7); ALKALINE PHOSPHATASE 75 U/L (46-116); ANION GAP 2 mmol/L (5-15); ASPARTATE AMINO TRANSFERASE 40 U/L (15-37); BILIRUBIN,TOTAL 1.2 MG/DL (0.2-1.0); BLOOD UREA NITROGEN 2 mg/dL (7-18); CALCIUM 7.5 MG/DL (8.5-10.1); CARBON DIOXIDE 30 MMOL/L (21-32); CHLORIDE 108 MMOL/L (98-107); CREATININE 0.8 MG/DL (0.55-1.30); POTASSIUM 3.4 MMOL/L (3.5-5.1); SODIUM 140 MMOL/L (136-145)
[2019-01-09 07:18] LABS: BILIRUBIN,DIRECT 0.3 MG/DL (0.0-0.3)
[2019-01-09 08:00] VITALS: BP 116/72
[2019-01-09 12:00] VITALS: BP 132/69
--- NOTE | 2019-01-09 12:01 | General Progress Note ---
Assessment/Plan Assessment/Plan: Assessment Acute pancreatitis, ? Etiology - no EtOH - no stones on imaging - no panc divisum on MRI - ill defined CBD finding on MRI of doubtful significance Recommendations - continue low fat diet - follow exam - IVF - outpatient EUS +/- ERCP - check lipid panel - unremarkable - d/c planning Subjective Allergies: Coded Allergies: No Known Allergies (Unverified , 01/05/19) Subjective feels better less pain lipase normal d/w patient re need for outpatient EUS / ERCP Objective Last 24 Hour Vital Signs Date Time Temp Pulse Resp B/P (MAP) Pulse Ox O2 Delivery O2 Flow Rate FiO2 01/09/19 09:00 Room Air 01/09/19 08:00 99.0 83 17 116/72 (87) 96 01/09/19 03:56 98.5 74 18 139/71 (93) 98 01/08/19 23:57 99.5 66 19 141/75 (97) 98 01/08/19 20:04 Room Air 01/08/19 20:00 99.7 77 18 144/78 (100) 99 01/08/19 16:00 97.0 68 18 118/74 (89) 97 Intake and Output 01/08/19 01/09/19 19:00 07:00 Intake Total 2250 ml Balance 2250 ml Intake Oral 600 ml IV Total 1650 ml # Voids 5 4 # Bowel Movements 1 Laboratory Tests 01/09/19 05:39: White Blood Count 8.2, Red Blood Count 3.89L, Hemoglobin 12.3L, Hematocrit 34.9L , Mean Corpuscular Volume 90, Mean Corpuscular Hemoglobin 31.5H, Mean Corpuscular Hemoglobin Concent 35.1, Red Cell Distribution Width 11.1L, Platelet Count 120L, Mean Platelet Volume 6.4L, Neutrophils (%) (Auto) 70.8, Lymphocytes (%) (Auto) 19.4L, Monocytes (%) (Auto) 7.7, Eosinophils (%) (Auto) 1.4, Basophils (%) (Auto) 0.7, Sodium Level 140, Potassium Level 3.4L, Chloride Level 108H, Carbon Dioxide Level 30, Anion Gap 2L, Blood Urea Nitrogen 2L, Creatinine 0.8, Estimat Glomerular Filtration Rate > 60, Glucose Level 118H, Calcium Level 7.5L, Total Bilirubin 1.2H, Direct Bilirubin 0.3, Aspartate Amino Transf (AST/SGOT) 40H, Alanine Aminotransferase (ALT/SGPT) 60, Alkaline Phosphatase 75, Total Protein 5.8L, Albumin 2.5L, Globulin 3.3, Albumin/ Globulin Ratio 0.8L, Lipase 213 Height (Feet): 6 Height (Inches): 1.00 Weight (Pounds): 159 Objective WDWN NCAT supple CTA RRR abd soft, min epigastric TTP no edema non focal Abigail Delacruz MD Jan 09, 2019 12:01
[2019-01-09 16:00] VITALS: BP 139/78
--- NOTE | 2019-01-09 16:32 | General Progress Note ---
Assessment/Plan Assessment/Plan: 1. Acute pancreatitis, non-necrotizing without gallstones, resolving. 2. History of migraine. dc today low fat diet disc w RN Subjective Constitutional: Reports: no symptoms Gastrointestinal/Abdominal: Reports: no symptoms Allergies: Coded Allergies: No Known Allergies (Unverified , 01/05/19) Objective Last 24 Hour Vital Signs Date Time Temp Pulse Resp B/P (MAP) Pulse Ox O2 Delivery O2 Flow Rate FiO2 01/09/19 12:00 97.4 77 17 132/69 (90) 99 01/09/19 09:00 Room Air 01/09/19 08:00 99.0 83 17 116/72 (87) 96 01/09/19 03:56 98.5 74 18 139/71 (93) 98 01/08/19 23:57 99.5 66 19 141/75 (97) 98 01/08/19 20:04 Room Air 01/08/19 20:00 99.7 77 18 144/78 (100) 99 Intake and Output 01/08/19 01/09/19 19:00 07:00 Intake Total 2250 ml Balance 2250 ml Intake Oral 600 ml IV Total 1650 ml # Voids 5 4 # Bowel Movements 1 Laboratory Tests 01/09/19 05:39: White Blood Count 8.2, Red Blood Count 3.89L, Hemoglobin 12.3L, Hematocrit 34.9L , Mean Corpuscular Volume 90, Mean Corpuscular Hemoglobin 31.5H, Mean Corpuscular Hemoglobin Concent 35.1, Red Cell Distribution Width 11.1L, Platelet Count 120L, Mean Platelet Volume 6.4L, Neutrophils (%) (Auto) 70.8, Lymphocytes (%) (Auto) 19.4L, Monocytes (%) (Auto) 7.7, Eosinophils (%) (Auto) 1.4, Basophils (%) (Auto) 0.7, Sodium Level 140, Potassium Level 3.4L, Chloride Level 108H, Carbon Dioxide Level 30, Anion Gap 2L, Blood Urea Nitrogen 2L, Creatinine 0.8, Estimat Glomerular Filtration Rate > 60, Glucose Level 118H, Calcium Level 7.5L, Total Bilirubin 1.2H, Direct Bilirubin 0.3, Aspartate Amino Transf (AST/SGOT) 40H, Alanine Aminotransferase (ALT/SGPT) 60, Alkaline Phosphatase 75, Total Protein 5.8L, Albumin 2.5L, Globulin 3.3, Albumin/ Globulin Ratio 0.8L, Lipase 213 Height (Feet): 6 Height (Inches): 1.00 Weight (Pounds): 159 General Appearance: no apparent distress Bryson Ramos MD Jan 09, 2019 16:31
[2019-01-09] MEDS ORDERED: D5NS 1000ml IV ONE ×2 (16:57→17:20)
--- NOTE | 2019-01-10 08:18 | Discharge Summary ---
Discharge Summary Discharge Summary _ DATE OF ADMISSION: 01/05/2019 DATE OF DISCHARGE: 01/09/2019 DISCHARGED BY: Dr. Ramos REASON FOR ADMISSION: 48 years old male with past medical history of migraines, but no significant other health problems, started to have abdominal pain at his child's soccer game. Pain subsequently became more severe , and he went to urgent care. Patient received GI cocktail , which helped with the pain and he went home . However, pain progressively became more severe and he came to emergency room for evaluation. He was evaluated with the labs and imaging and found to have acute pancreatitis. He denied drinking alcohol. He denied history of abdominal surgery or gallstones. Laboratory work-up work-up revealed mild leukocytosis , stable hemoglobin and hematocrit. Lipase [id number]. Total bilirubin 1.6, stable AST and ALT. Urinalysis revealed no evidence of urinary tract infection. CT of the abdomen and pelvis revealed evidence of nonnecrotizing acute pancreatitis with surrounding phlegmon and fluid. No evidence of pseudocyst or abscess. Chronic diverticulosis without evidence of diverticulitis. Abdominal ultrasound demonstrated no gallstones or dilated ducts. Enlarged pancreatic body and tail , corresponding to findings demonstrated on CT scan, likely reflecting acute pancreatitis. Patient subsequently admitted for further management. HOSPITAL COURSE: Patient admitted to medical surgical floor . Patient was kept n.p.o. and started on IV fluids. Pain management was arranged. GI specialist followed. Patient had episode of acute pancreatitis for the first time. Per GI specialist it was highly possible that he had one stone that passed, and caused pancreatitis. However other pathology needed to be evaluated, including possible pancreatic lesion . Subsequently patient undergone MRI of the abdomen , which revealed evidence of acute distal pancreatitis. Lipase was trending. Potassium was replaced. Patient slowly started on clear liquid diet and was advanced as tolerated. Patient was able to tolerate diet. Antiemetic provided as needed. Lipid panel was stable. Total bilirubin down to 1.2 , lipase down to 213 upon discharge. Per GI specialist, acute pancreatitis was of unclear etiology , since no stones on imaging , no pancreatic divisum on MRI , and no history of alcohol abuse. GI specialist recommended outpatient endoscopic ultrasound and/or ERCP. Patient was counseled on low fat diet. Patient clinically improved and was ready for discharge. FINAL DIAGNOSES: Acute pancreatitis, nonnecrotizing without gallstones , -resolving History of migraine DISCHARGE MEDICATIONS: See Medication Reconciliation list. DISCHARGE INSTRUCTIONS: Patient was discharged home . Patient was recommended by GI specialist endoscopic ultrasound as outpatient and/ or ERCP. Patient was counseled on low-fat diet. Follow up with primary care provider in one week. I have been assigned to dictate discharge summary for this account. I was not involved in the patient's management. Lay Gould NP Jan 10, 2019 08:18
== END 2019-01-09 17:21 | disposition home or self-care (01) | DRG 440 ==
LOC: EMR 18:07 → 4E 19:28 → EDBEDREQ 20:32
DX: K85.90 Acute pancreatitis without necrosis or infection, unspecified (principal)
CPT/HCPCS: 36415; 74177; 74183; 76700; 80048; 80053; 80061; 80076; 81003; 82248; 83690; 85007; 85025; 96361; 96374; 96375; 96376; 99285; A9585; J2405; J7030; J8499